=== PATIENT | male | born 1990 | race Caucasian/White ===

== ENCOUNTER 2016-08-02 18:53 | Inpatient (IN) | payer OTHER ==
[~2016-08-02] VITALS: Ht 190.5 cm; Wt 77.1 kg
[2016-08-02 20:45] VITALS: BP 128/60
--- NOTE | 2016-08-02 20:45 | NUR ---
INTAKE ASSESSMENT BP: 128/60, HR:100, RR:18, SpO2: 99%, T:98.0, Pain: 6/10 Ht: 6'3" Wt: 170 lbs Pt is in stable condition and able to be admitted on unit. Unit protocols regarding medications and vital signs Q4H explained to pt. Pt verbalized understanding.
[2016-08-02] MEDS ORDERED: ONDANSETRON 4 MG/2 ML VIAL IM PRN (21:15)
[2016-08-02] MEDS ORDERED: LOPERAMIDE HCL 2 MG CAPSULE PO PRN ×2 (21:15)
[2016-08-02] MEDS ORDERED: BUPRENORPHINE HCL 2 MG TAB.SUBL SL PRN (21:15)
[2016-08-02] MEDS ORDERED: LORAZEPAM 1 MG TABLET PO PRN ×2 (21:15)
[2016-08-02] MEDS ORDERED: LORAZEPAM 2 MG/1 ML VIAL IM PRN (21:15)
[2016-08-02] MEDS ORDERED: METHOCARBAMOL 750 MG TABLET PO PRN (21:15)
[2016-08-02] MEDS ORDERED: diphenhydrAMINE 50 MG CAPSULE PO PRN (21:15)
[2016-08-02] MEDS ORDERED: MAG HYDROX/AL HYDROX/SIMETH 30 ML LIQUID UDC PO PRN (21:15)
[2016-08-02] MEDS ORDERED: ACETAMINOPHEN 325 MG TABLET PO PRN (21:15)
[2016-08-02] MEDS ORDERED: ONDANSETRON ODT 4 MG TAB.RAPDIS SL PRN (21:15)
[2016-08-02] MEDS ORDERED: THIAMINE HCL 200 MG/2 ML VIAL IM ONE (21:15)
[2016-08-02] MEDS ORDERED: MIRALAX 17 GM POWD.PACK PO PRN (21:15)
[2016-08-02] MEDS ORDERED: MAGNESIUM HYDROXIDE 30 ML LIQUID UDC PO PRN (21:15)
[2016-08-02] MEDS ORDERED: DICYCLOMINE HCL 20 MG TABLET PO PRN (21:15)
[2016-08-02] MEDS ORDERED: CLONIDINE HCL 0.1 MG TABLET PO PRN (21:15)
[2016-08-02] MEDS ORDERED: METH750T3 PO (21:30)
[2016-08-02] MEDS ORDERED: ONDA4TAB5 PO (21:30)
[2016-08-02] MEDS ORDERED: BUPR1FIL3 SL (21:30)
--- NOTE | 2016-08-02 21:30 | NUR ---
ADMISSION NOTE Pt arrived ambulatory from [facility] to the third floor accompanied by a APPLE PEELER OPERATOR at 2100. Pt is a 25 year old male admitted on 08/02/16 for Benzo, ETOH, Heroin, Crack, Cocaine and Marijuana dependency. Pt is full code with NKA. He reports a PMHx of seizure 10 months ago related to ETOH withdrawal, and right clavicle surgery 8 years ago. Pt denies having a PCP. He brought in home medications of Suboxone 8mg/2mg, Robaxin 750 mg, and Zofran 4 mg which he received from his previous treatment facility. Medications have been reconciled. Pt reports that he is here for Heroin, ETOH, Crack, Cocaine, Xanax and Marijuana. Pt states he is originally from [place] but has been living in [facility] for a few months. He reports his last sobriety was for 5 months, 1 month ago. He reports that he was at [facility] and arrived there last night (08/01/16) but was sent to [facility] today. He describes his current use as: 1. ETOH 1/5th of whiskey daily x 1 month Last dose: 2 pints on 08/01/16 2. Xanax " few bars" one time Last dose: " few bars" on 08/01/16 3. Heroin 1.5 gram IV daily x 1 month Last dose: 2 grams IV on 08/01/16 4. Crack 2 grams (smoke) daily x 1 month Last dose: 1 gram (smoke) on 07/31/16) 5. Cocaine 2 grams IV daily x 1 month Last dose: 2 grams IV on 07/31/16 6. Marijuana 1/th gram (smoke) daily for "years" Last dose: 1/8th gram on 08/01/16 Pt describes his withdrawal symptoms as "vomiting, muscle aches, restlessness, hot and cold sweats, diarrhea" Upon assessment pt is alert and oriented x4, anxious and cooperative. Speech is clear and audible. Heart rate is regular. Pt denies chest pain or SOB. PERRLA, breathing is even and unlabored. Lung sounds clear in all lobes, abdomen is soft and non distended. Bowel sounds present in all quadrants. Last BM (08/02/16). Pt reports that BM is regular. Pt's skin is warm, dry and intact. made aware of admission. Pt oriented to room and unit. Pt safe with bed locked in lowest position, side rails up x2 and call light within reach. Will continue to monitor.
[2016-08-02 21:52] LABS: *AMPHETAMINE, URINE NEGATIVE (NEGATIVE); *BARBITURATE, URINE NEGATIVE (NEGATIVE); *CANNABINOID, URINE POSITIVE (NEGATIVE); *COCCAINE, URINE POSITIVE (NEGATIVE); *OPIATE, URINE NEGATIVE (NEGATIVE); *PHENCYCLIDINE SCREEN,URINE NEGATIVE (NEGATIVE)
[2016-08-02] MEDS ORDERED: BUPRENORPHINE HCL 2 MG TAB.SUBL SL ONE (22:08)
[2016-08-02 22:09] LABS: BASOPHILS % (AUTO) 0.6 % (0.0-2.0); EOSINOPHILS # (AUTO) 0.1 K/uL (0.0-0.7); EOSINOPHILS % (AUTO) 1.8 % (0.0-7.0); HEMATOCRIT 40.7 % (40-50); HEMOGLOBIN 13.5 G/DL (14.0-18.0); LYMPHOCYTES # (AUTO) 3.2 K/UL (0.8-4.8); LYMPHOCYTES % (AUTO) 42.7 % (20.5-51.5); MEAN CORPUSCULAR HGB CONC 33 g/dL (32.0-37.0); MEAN CORPUSCULAR VOLUME 90.8 FL (82.0-92.0); MONOCYTES # (AUTO) 0.8 K/UL (0.1-1.30); MONOCYTES % (AUTO) 10.6 % (0.0-11.0); NEUTROPHILS # (AUTO) 3.5 K/UL (1.8-8.9); NEUTROPHILS % (AUTO) 44.3 % (38.5-71.5); PLATELET COUNT (AUTO) 171 K/UL (150-450); RED BLOOD CELL COUNT(AUTO) 4.48 MIL/UL (4.7-6.1); WHITE BLOOD COUNT (AUTO) 7.6 K/UL (4.0-11.2)
[2016-08-02] MEDS ORDERED: LORAZEPAM 1 MG TABLET ONE (22:09)
[2016-08-02 22:24] LABS: ALANINE AMINOTRANSFERASE 67 U/L (16-63); ALKALINE PHOSPHATASE 82 U/L (50-136); AMYLASE 56 U/L (25-115); ASPARTATE AMINOTRANSFERASE 32 U/L (15-37); BILIRUBIN,TOTAL 0.2 mg/dL (0.2-1.0); CARBON DIOXIDE 29 mmol/L (21-32); CHLORIDE 104 mmol/L (98-107); CREATININE 0.9 mg/dL (0.6-1.3); GLUCOSE 93 mg/dL (74-106); MAGNESIUM 1.5 mg/dL (1.8-2.4); TOTAL PROTEIN, SERUM 6.5 g/dL (6.4-8.2); UREA NITROGEN, BLOOD 13 mg/dL (7-18)
[2016-08-02 22:29] LABS: ETHANOL < 3 MG/DL (0-0)
--- NOTE | 2016-08-02 22:33 | NUR ---
PRN SUBUTEX/ATIVAN Pt complains of body aches 6/10, hot/cold sweats, restlessness, anxiety, and agitation. PRN Subutex 4mg and PRN Ativan 1mg administered as ordered. COWS:12, CIWA: 8. Breathing even and unlabored, safety measures in place. Will monitor effectiveness.
--- NOTE | 2016-08-02 23:33 | NUR ---
PRN SUBUTEX/ATIVAN REASSESSMENT PRN medications effective as evidenced by decrease in COWS & CIWA. Pt reports decrease in withdrawal symptoms. COWS: 5, CIWA:5. Breathing is even and unlabored, safety measures in place. Will continue to monitor.
[2016-08-03] VITALS: BP 119/66
[2016-08-03 04:00] VITALS: BP 125/70
--- NOTE | 2016-08-03 06:58 | NUR ---
END OF SHIFT Pt is is 25 year old male admitted on 08/02/16 for Xanax, ETOH, Heroin, Crack, Cocaine, and Marijuana dependency. Pt is full code with NKA. He reports a history of seizure 10 months ago related to ETOH w/d and right clavicle surgery 8 years ago. At 2233 he complained of restlessness, body aches, anxiety, and agitation and received PRN Subutex and PRN Ativan. PRN medications were effective as evidenced by decrease in COWS & CIWA scores. He slept a total of 5 hrs, Intake: 355 mL, Void: x1, BM: 0. COWS:1, CIWA:2. Pt remains alert and oriented x4, breathing is even and unlabored, safety measures in place. Endorsed to oncoming shift.
--- NOTE | 2016-08-03 07:26 | NUR ---
Start of shift note; Received report from night nurse. Patient is a 25 year old male admitted on 08/02/16 for Benzo/ ETOH/ Opiate dependence. Patient to be evaluated today by MD. Patient reported history of seizure d/t ETOH withdrawal 10 months ago. Patient also had right clavicle surgery 8 years ago. Patient is on a full code status, NKA, regular diet. Patient's last COWS score is 4 and last CIWA of 4 at 0400. Patient slept for 5 hours. Patient is on fall and seizure precaution. Will continue to monitor patient .
[2016-08-03 08:00] VITALS: BP 108/63
[2016-08-03] MEDS: THIAMINE HCL 100 MG TABLET PO SCH (08:52)
[2016-08-03] MEDS: MULTIVITAMINS,THERAPEUTIC TABLET PO SCH (08:52)
[2016-08-03] MEDS: FOLIC ACID 1 MG TABLET PO SCH (08:52)
[2016-08-03] MEDS ORDERED: TUBERCULIN,PURIF.PROT.DERIV. 5 TU/0.1 ML TEST ID ONE (09:00)
[2016-08-03] MEDS ORDERED: MAGNESIUM OXIDE 400 MG TABLET PO ONE (09:00)
--- NOTE | 2016-08-03 09:05 | NUR ---
Magnesium replacement; Patient's magnesium is 1.5, supplemented with Magnesium Oxide 400mg PO once per MD order. Will continue to monitor patient.
[2016-08-03] MEDS: LORAZEPAM 1 MG TABLET PO SCH ×4 (10:00→21:07)
[2016-08-03] MEDS: BUPRENORPHINE HCL 2 MG TAB.SUBL SL SCH ×4 (10:00→21:07)
[2016-08-03 12:00] VITALS: BP 105/67
--- NOTE | 2016-08-03 15:32 | NUR ---
Client was informed about daily group times, and client expressed that he would consider going.
[2016-08-03 16:00] VITALS: BP 113/68
--- NOTE | 2016-08-03 18:50 | NUR ---
End of shift note; Patient is AOX4. Patient is a 25 year old male admitted on 08/02/16 for Benzo/ ETOH/ Opiate dependence. Patient to be evaluated today by MD. Patient reported history of seizure d/t ETOH withdrawal 10 months ago. Patient also had right clavicle surgery 8 years ago. Patient is on a full code status, NKA, regular diet. Patient remained compliant with treatment plan and medication regime. Patient was placed on Subutex/Ativan , no adverse reactions noted. All safety measures secured. Met all needs.
--- NOTE | 2016-08-03 19:50 | NUR ---
START OF SHIFT Received report from day shift nurse. Pt is lying in bed resting. He is a 25 yo male admitted to [facility] on 08/02 for BZD and ETOH dependence. He is A&O and ambulatory. NKA, full code status, and on a regular diet. He has a PMH of seizure r/t ETOH w/d and right clavicle surgery. On admission he admitted to using Xanax "a few bars", ETOH 1/5th, heroin IV 1.5 grams, crack 2 grams, cocaine IV 2 grams, and marijuana 1/8th per day. Pt was started on 5 day Ativan and Subutex tapers today. Pt reports chills, anxiety, nasal stuffiness, body aches, and restlessness. He is observed to have restless legs. Tapers due tonight. Fall and seizure precautions in place. Bed is down with call light in reach.
[2016-08-03 20:00] VITALS: BP 107/69
[2016-08-03] MEDS: IBUPROFEN 600 MG TABLET PO PRN (21:07)
--- NOTE | 2016-08-03 21:10 | NUR ---
PRN Motrin administration Pt reports headache and body aches 08/07. PRN Motrin administered.
--- NOTE | 2016-08-03 22:10 | NUR ---
PRN Motrin reassessment PRN Motrin effective. Pt reports relief of headache. Addendum: 08/04/16 at 0440 by MILADYS DASILVA RN Body aches reduced to 2/10
[2016-08-04] VITALS: BP 119/64
[2016-08-04 04:00] VITALS: BP 119/67
--- NOTE | 2016-08-04 07:21 | NUR ---
END OF SHIFT Report provided to day shift nurse. Pt is lying in bed resting. He is a 25 yo male admitted to [facility] on 08/02 for BZD and ETOH dependence. He is A&O and ambulatory. NKA, full code status, and on a regular diet. He has a PMH of seizure r/t ETOH w/d and right clavicle surgery. On admission he admitted to using Xanax a few bars, ETOH 1/5th, heroin IV 1.5 grmas, crack 2 grams, cocaine IV 2 grams, and marijuana 1/8th per day. Pt started a 5 day Ativan taper on 08/03. PRN Motrin administered. Last COWS 4 and CIWA 3. He drank 1355mL and slept for 7 hours. Fall and seizure precautions in place. Bed is down with call light in reach.
--- NOTE | 2016-08-04 07:44 | NUR ---
Start of shift note; Received report from night nurse. Patient is a 25 year old male admitted on 08/02/16 for Benzo/ ETOH/ Opiate dependence. Patient to be evaluated today by MD. Patient reported history of seizure d/t ETOH withdrawal 10 months ago. Patient also had right clavicle surgery 8 years ago. Patient is on a full code status, NKA, regular diet. Patient's last COWS score is 4 and last CIWA of 3 at 0400. Patient slept for 7 hours. Patient is on fall and seizure precaution. Will continue to monitor patient .
[2016-08-04 08:00] VITALS: BP 120/63
[2016-08-04] MEDS: FOLIC ACID 1 MG TABLET PO SCH (08:48)
[2016-08-04] MEDS: THIAMINE HCL 100 MG TABLET PO SCH (08:48)
[2016-08-04] MEDS: LORAZEPAM 1 MG TABLET PO SCH ×3 (08:48→20:47)
[2016-08-04] MEDS: MULTIVITAMINS,THERAPEUTIC TABLET PO SCH (08:48)
[2016-08-04] MEDS: BUPRENORPHINE HCL 2 MG TAB.SUBL SL SCH ×3 (08:49→20:47)
--- NOTE | 2016-08-04 11:48 | NUR ---
PRN medication; Patient is complaining of muscle aches, PRN Robaxin 750mg PO given. Will continue to monitor patient.
[2016-08-04 12:00] VITALS: BP 112/62
--- NOTE | 2016-08-04 12:48 | NUR ---
Re-assessment; Patient verbalized decrease in muscle aches. PRN Robaxin is effective. Will continue to monitor patient.
[2016-08-04 14:09] LABS: HEPATITIS B SURFACE AG Negative (Negative)
[2016-08-04 16:00] VITALS: BP 106/63
--- NOTE | 2016-08-04 18:24 | NUR ---
End of shift note; Patient is AOX4. Patient is a 25 year old male admitted on 08/02/16 for Benzo/ ETOH/ Opiate dependence. Patient to be evaluated today by MD. Patient reported history of seizure d/t ETOH withdrawal 10 months ago. Patient also had right clavicle surgery 8 years ago. Patient is on a full code status, NKA, regular diet. Patient remained compliant with treatment plan and medication regime. Patient was placed on Subutex/Ativan , no adverse reactions noted. Patient's last COWS is 5 and last CIWA is 4. All safety measures secured. Met all needs.
[2016-08-04 20:00] VITALS: BP 114/70
--- NOTE | 2016-08-04 20:05 | NUR ---
START OF SHIFT Received report from day shift nurse. Pt attended a group meeting and returned to his room after. He is a 25 yo male admitted to [facility] on 08/02 for BZD and ETOH dependence. He is A&O and ambulatory. NKA, full code status, and on a regular diet. He has a PMH of seizure r/t ETOH w/d and right clavicle surgery. Upon admission he reported using Xanax "a few bars", ETOH 1/, heroin IV 1.5 grams, crack 2 grams, cocaine IV 2 grams, and marijuana 1/8th per day. 5 day Ativan and Subutex tapers started 08/03. Pt presents with chills, hot and cold flashes, muscle aches, and goose bumps. Tapers due tonight. Fall and seizure precautions in place. Bed is down with call light in reach.
[2016-08-04] MEDS: GABAPENTIN 300 MG CAPSULE PO SCH (20:47)
[2016-08-04] MEDS: IBUPROFEN 600 MG TABLET PO PRN (20:47)
--- NOTE | 2016-08-04 20:48 | NUR ---
PRN Motrin administration Pt reports generalized body aches and joint pain 09/06. PRN Motrin administered.
--- NOTE | 2016-08-04 21:48 | NUR ---
PRN Motrin reassessment PRN Motrin effective. Pt reports muscle and joint pain are reduced.
[2016-08-05] VITALS: BP 97/43
[2016-08-05 04:00] VITALS: BP 114/73
--- NOTE | 2016-08-05 07:10 | NUR ---
END OF SHIFT Report provided to day shift nurse. Pt is lying in bed resting. He is a 25 yo male admitted to [facility] on 08/02 for BZD and ETOH dependence. He is A&O and ambulatory. NKA, full code status, and on a regular diet. He has a PMH of seizure r/t ETOH w/d and right clavicle surgery. On admission he admitted to using Xanax "a few bars", ETOH 1/5th, heroin IV 1.5 grams, crack 2 grams, cocaine IV 2 grams, and marijuana 1/8th per day. 5 day Ativan and Subutex tapers started 08/03. PRN Motrin administered. Last COWS 2 and CIWA 1. He drank 1430mL and slept for 6 hours. Fall and seizure precautions in place. Bed is down with call light in reach.
[2016-08-05 07:56] LABS: MAGNESIUM 1.8 mg/dL (1.8-2.4); POTASSIUM 4.1 mmol/L (3.5-5.1)
[2016-08-05 08:00] VITALS: BP 111/53
[2016-08-05] MEDS ORDERED: BUPRENORPHINE HCL 2 MG TAB.SUBL SL SCH (09:00)
[2016-08-05] MEDS: GABAPENTIN 300 MG CAPSULE PO SCH ×3 (09:12→17:04)
[2016-08-05] MEDS: LORAZEPAM 1 MG TABLET PO SCH ×4 (09:12→21:21)
[2016-08-05] MEDS: FOLIC ACID 1 MG TABLET PO SCH (09:12)
[2016-08-05] MEDS: MULTIVITAMINS,THERAPEUTIC TABLET PO SCH (09:12)
[2016-08-05] MEDS: THIAMINE HCL 100 MG TABLET PO SCH (09:12)
--- NOTE | 2016-08-05 10:00 | NUR ---
START OF SHIFT Received report from unit control clerk nurse. Patient is 26 year old male admitted for medically supervised withdrawal from alcohol and heroin. Patient is full code with NKA. On 5-day Subutex and 5-Day taper. On assessment this AM: CIWA: 6 and COWS: 8. Denies SOB, chest pain. Recent VS: 111/53, HR 59, R16, T98, 0/10 pain and 98% 02 sat room air. Complained of diarrhea X1 this AM but declined imodium when offered, instructed to notify health technical writer if he has another episode and would like to take it. Complained of body aches, mild headache (declined prn pain med at this time), stuffy nose, tremors, anxiety and tactile sensation. Med compliant with AM meds. Patient reports poor appetite and ate breakfast 25% only, encouraged to hydrate with fluids. Patient was encouraged to attend group meetings today. Will continue to monitor patient.
[2016-08-05] MEDS ORDERED: BUPRENORPHINE HCL 2 MG TAB.SUBL SL ONE (11:15)
--- NOTE | 2016-08-05 11:48 | NUR ---
ONE TIME SUBUTEX Patient received one time dose of subutex 4mg po as ordered. COWS = 10
[2016-08-05 12:00] VITALS: BP 110/73
--- NOTE | 2016-08-05 12:18 | NUR ---
REASSESSMENT ONE TIME SUBUTEX Patient's most recent COWS = 7, patient reports feeling much better with decreased anxiety.
[2016-08-05] MEDS: BACLOFEN 10 MG TABLET PO SCH ×2 (14:05→21:21)
[2016-08-05] MEDS: DICYCLOMINE HCL 20 MG TABLET PO SCH ×2 (14:05→21:21)
[2016-08-05] MEDS: IBUPROFEN 600 MG TABLET PO PRN (14:05)
--- NOTE | 2016-08-05 14:05 | NUR ---
PRN IBUPROFEN Patient complains of body ache, 5/10. PRN ibuprofen given, will monitor effectiveness.
[2016-08-05] MEDS: BUPRENORPHINE HCL 2 MG TAB.SUBL SL SCH ×2 (14:06→21:22)
--- NOTE | 2016-08-05 14:33 | NUR ---
Therapist continued to encourage client to attend daily group psychotherapy. Client related that he has not been feeling well, but would attend later today if he was feeling better.
--- NOTE | 2016-08-05 15:05 | NUR ---
REASSESSMENT PRN IBUPROFEN Patient reports decreased pain. Pain level was 5/10 and is now 2/10.
[2016-08-05 16:00] VITALS: BP 122/63
--- NOTE | 2016-08-05 19:21 | NUR ---
END OF SHIFT Patient is 26 year old male admitted for medically supervised withdrawal from alcohol and heroin. Patient is full code with NKA. On 5-day Subutex and 5-Day taper. Most recent CIWA: 7 and COWS: 8. Patient reports mild sweating, body aches, stuffy nose, nausea (pt. declined prn for nausea when offered), tremors and anxiety. Patient is med compliant this shift. Cooperative with lab draw. night warehouse selectornight clerk auditor will continue to monitor patient.
[2016-08-05 20:00] VITALS: BP 121/62
--- NOTE | 2016-08-05 20:00 | NUR ---
START OF SHIFT NOTE Pt is a 26 y/o male admitted for Xanax, ETOH, Heroin, Crack, Cocaine, and Marijuana dependence and use. Pt has NKA but reported a PMH of seizure r/t ETOH w/d (10 months ago) and a right clavicle surgery 8 years ago. Per day shift nurse pt was placed on a 5 day Subutex and Ativan taper (day 3) and is tolerating medication well with no s/e or a/r reported. Pt received a x 1 dose of Subutex 4 mg PO during the day shift. Last COW: 8 and CIWA: 7 (1600). At this time pt is asleep in bed with no signs of discomfort/distress noted. Pt is easily aroused by light touch. Pt stated " I'm okay. I'm just sleepy." Pt denies pain/discomfort. Pt was encouraged to notify staff of any changes in condition or of any concerns. Pt verbalized an understanding. All safety measures in place; side rails up x 2, bed locked and in low position, and call light within reach. Will continue to monitor.
[2016-08-06] VITALS: BP 117/77
[2016-08-06 04:00] VITALS: BP_SYST 115; BP_SYST 131; BP_DIAS 73; BP_DIAS 82
--- NOTE | 2016-08-06 07:13 | NUR ---
END OF SHIFT NOTE Pt is a 26 y/o male admitted for Xanax, ETOH, Heroin, Crack, Cocaine, and Marijuana dependence and use. Pt has NKA but reported a PMH of seizure r/t ETOH w/d (10 months ago) and a right clavicle surgery 8 years ago. Pt was placed on a 5 day Subutex and Ativan taper (day 4) and is tolerating medication well with no s/e or a/r reported. Pt didn't receive any PRNS during the shift. Last COW: 0 and CIWA: 0(0400). Pt slept for a total of 9 hours. All safety measures in place; side rails up x 2, bed locked and in low position, and call light within reach. Will endorse to the oncoming nurse.
[2016-08-06 08:00] VITALS: BP 118/62
[2016-08-06] MEDS: LORAZEPAM 1 MG TABLET PO SCH ×3 (09:47→21:30)
[2016-08-06] MEDS: GABAPENTIN 300 MG CAPSULE PO SCH ×3 (09:47→17:13)
[2016-08-06] MEDS: FOLIC ACID 1 MG TABLET PO SCH (09:48)
[2016-08-06] MEDS: BACLOFEN 10 MG TABLET PO SCH ×2 (09:48→14:42)
[2016-08-06] MEDS: BUPRENORPHINE HCL 2 MG TAB.SUBL SL SCH ×3 (09:48→21:31)
[2016-08-06] MEDS: MULTIVITAMINS,THERAPEUTIC TABLET PO SCH (09:48)
[2016-08-06] MEDS: DICYCLOMINE HCL 20 MG TABLET PO SCH ×3 (09:48→21:00)
[2016-08-06] MEDS: THIAMINE HCL 100 MG TABLET PO SCH (09:48)
--- NOTE | 2016-08-06 10:00 | NUR ---
START OF SHIFT Received report from overnight stocker nurse. Patient is 26 year old male admitted for medically supervised withdrawal from alcohol and heroin. Patient is full code with NKA. On 5-day Subutex and 5-Day taper. On assessment this AM: CIWA: 7 and COWS: 6. Denies SOB, chest pain. vitals signs WNL. Reports mild diarrhea X1 this AM but declined imodium when offered. Complained of body aches (pain 7/10), stuffy nose, tremors and anxiety and mild tactile sensation. Med compliant with AM meds. Patient consumed 50% of his breakfast. Patient was encouraged to attend group meetings today. Will continue to monitor patient.
[2016-08-06 12:00] VITALS: BP 119/54
[2016-08-06 16:00] VITALS: BP 134/67
--- NOTE | 2016-08-06 18:26 | NUR ---
END OF SHIFT Patient is 26 year old male admitted for medically supervised withdrawal from alcohol and heroin. Patient is full code with NKA. On 5-day Subutex and 5-Day taper. Most recent CIWA: 5 and COWS: 6. Patient reports body aches, stuffy nose, tremors and anxiety. Patient is med compliant this shift. Pratinet reports his routine medications help with body aches and anxiety. automobile body repair chieffire and safety helper will continue to monitor patient.
--- NOTE | 2016-08-06 19:45 | NUR ---
START OF SHIFT NOTE Pt is a 26 y/o male admitted for Xanax, ETOH, Heroin, Crack, Cocaine, and Marijuana dependence and use. Pt has NKA but reported a PMH of seizure r/t ETOH w/d (10 months ago) and a right clavicle surgery 8 years ago. Per day shift nurse pt continues on a 5 day Subutex and Ativan taper (day 4) and is tolerating medication well with no s/e or a/r reported. Pt didn't receive any PRNS during the day shift. Last COW: 4 and CIWA: 5 (1600). At this time pt is asleep in bed with no signs of discomfort/distress noted. Pt is easily aroused. Pt denies pain/discomfort. Pt was encouraged to notify staff of any changes in condition or of any concerns. Pt verbalized an understanding. All safety measures in place; side rails up x 2, bed locked and in low position, and call light within reach. Will continue to monitor.
[2016-08-06 20:00] VITALS: BP 95/67
[2016-08-06] MEDS ORDERED: BACLOFEN 10 MG TABLET PO SCH (21:00)
[2016-08-06] MEDS: BACLOFEN 20 MG TABLET PO SCH (21:00)
[2016-08-06] MEDS ORDERED: GABAPENTIN 300 MG CAPSULE PO SCH (21:00)
[2016-08-07] VITALS: BP 116/62
--- NOTE | 2016-08-07 04:00 | NUR ---
COW, CIWA, AND VITALS REFUSED Pt refused to be assessed and have vitals taken at this time. Pt was encouraged x 3 with risks and benefits explained, but the pt still refused. All safety measures in place. Will continue to monitor. Addendum: 08/07/16 at 0559 by BALBIR TRUJILLO LVN Amended: Links added.
--- NOTE | 2016-08-07 07:30 | NUR ---
Start of Shift Report from the night nurse: pt is a 25 y/o male here for Benzo r/t Xanax a few bars used once, Etoh r/t whiskey 750mL /d for a month, Opiates r/t heroin 1.5g/d, Cocaine 2g smoked/da d Marijuana 1/8/d; 5 day Ativan and 5 day Subutex tapers ordered started 08/03/16. Pt is a f/c, regular diet, NKA, fall and seizure precautions ordered. HHx: Seizure 10 months ago r/t Etoh w/d and right Clavicle surgery 8 years ago. No PRN's given last night. Last night pt refused Bentyl 20mg. No abnormal labs or new orders endorsed for me to f/u. Last COWS 0 CIWA 0. Pt is asleep in room. Will cont. to monitor the pt.
--- NOTE | 2016-08-07 07:42 | NUR ---
END OF SHIFT NOTE Pt is a 26 y/o male admitted for Xanax, ETOH, Heroin, Crack, Cocaine, and Marijuana dependence and use. Pt has NKA but reported a PMH of seizure r/t ETOH w/d (10 months ago) and a right clavicle surgery 8 years ago. Pt continues on a 5 day Subutex and Ativan taper (day 5) and is tolerating medication well with no s/e or a/r reported. Pt didn't receive any PRNS during the shift. Last COW: 0 and CIWA: 0(0400). Pt slept for a total of 9 hours. All safety measures in place; side rails up x 2, bed locked and in low position, and call light within reach. Will endorse to the oncoming nurse.
[2016-08-07 08:00] VITALS: BP 120/67
[2016-08-07] MEDS: DICYCLOMINE HCL 20 MG TABLET PO SCH ×3 (08:53→21:21)
[2016-08-07] MEDS: MULTIVITAMINS,THERAPEUTIC TABLET PO SCH (08:53)
[2016-08-07] MEDS: IBUPROFEN 600 MG TABLET PO PRN (08:53)
[2016-08-07] MEDS: BACLOFEN 20 MG TABLET PO SCH ×3 (08:53→21:20)
[2016-08-07] MEDS: LORAZEPAM 1 MG TABLET PO SCH ×2 (08:54→21:22)
[2016-08-07] MEDS: FOLIC ACID 1 MG TABLET PO SCH (08:54)
[2016-08-07] MEDS: THIAMINE HCL 100 MG TABLET PO SCH (08:54)
[2016-08-07] MEDS: BUPRENORPHINE HCL 2 MG TAB.SUBL SL SCH ×2 (08:57→21:23)
[2016-08-07] MEDS ORDERED: GABAPENTIN 300 MG CAPSULE PO SCH (09:00)
--- NOTE | 2016-08-07 09:55 | NUR ---
PRN Medication Administration Pt c/o KEYES and nausea; PRN Zofran 4mg SL and Motrin 400mg given as ordered. Will reassess in 1H.
--- NOTE | 2016-08-07 11:00 | NUR ---
Reassessment Pt is in room resting in bed and denies KEYES and no nausea; Motrin and Zofran are effective. Will cont. to monitor the pt.
[2016-08-07 12:00] VITALS: BP 126/68
[2016-08-07] MEDS ORDERED: KETOROLAC TROMETHAMINE 30 MG INJ IM PRN (12:00)
[2016-08-07] MEDS ORDERED: BUPRENORPHINE HCL 2 MG TAB.SUBL SL ONE ×2 (12:00→15:45)
--- NOTE | 2016-08-07 12:31 | NUR ---
New Order Subutex ONCE Pt is in room lying in bed anxious and restless with frequent shifting and position changes, c/o recurrent mild nausea, mild KEYES, first bout of diarrhea, V/S stable, COWS 8; New order s/p Dr. Barajas's evaluation for Subutex 4mg ONCE given with first dose of Imodium 4mg given as ordered. Will reassess in 1H.
--- NOTE | 2016-08-07 13:36 | NUR ---
Reassessment Pt is in room taking a nap, no non-verbal s/sx of nausea, restlessness or pain present; Subutex and Zofran are effective. Will cont. to monitor the pt.
[2016-08-07] MEDS: CLONIDINE HCL 0.1 MG TABLET PO SCH ×2 (15:00→21:00)
[2016-08-07] MEDS ORDERED: LORAZEPAM 1 MG TABLET PO ONE (15:45)
[2016-08-07] MEDS ORDERED: HYDROXYZINE PAMOATE 25 MG CAPSULE PO PRN (15:45)
[2016-08-07 16:00] VITALS: BP 115/76
--- NOTE | 2016-08-07 17:20 | NUR ---
New Orders-Subutex and Ativan, Late & Non-Medication Administration, Pt is in room anxious, irritable, restless with pacing, nasal congestion, flushed, numbness, tingling, mild tremors felt, mild nausea, stomach cramps, generalized pain 08/07, V/S stable, COWS 7 CIWA 11; New Orders for Subutex 2mg ONCE, Ativan 1mg ONCE, pt refused Clonidine 0.1mg. Late medication administration since pt was in group therapy and out smoking after. Will reassess in 1H.
[2016-08-07] MEDS: GABAPENTIN 300 MG CAPSULE PO SCH ×2 (17:25→21:20)
--- NOTE | 2016-08-07 18:47 | NUR ---
End of Shift Report to night nurse: pt is a 25 y/o male here for Benzo r/t Xanax a few bars used once, Etoh r/t whiskey 750mL /d for a month, Opiates r/t heroin 1.5g/d, Cocaine 2g smoked/d Marijuana 1/8/d; 5 day Ativan and 5 day Subutex tapers ordered started 08/03/16. Pt is a f/c, regular diet, NKA, fall and seizure precautions ordered. HHx: Seizure 10 months ago r/t Etoh w/d and right Clavicle surgery 8 years ago. PRN's: Ibuprofen 600mg and Zofran given this morning at 0955am and Imodium 4mg given at 1225pm for first bout of diarrhea. New Order for Subutex 4 mg ONCE at at 1228p with COWS 8, Subutex 4mg SL ONCE at 1725 with COWS 11 and Ativan 1mg ONCE with CIWA 7. No new labs during my shift. Pt denies chest pain and no SOB noted during my shift. No hallucinations, delusions, or suicidal ideations noted. Pt attended 1 group activity during my shift with encouragement to attend group therapy. Last COWS 7 CIWA 11.
--- NOTE | 2016-08-07 19:45 | NUR ---
START OF SHIFT NOTE Pt is a 26 y/o male admitted for Xanax, ETOH, Heroin, Crack, Cocaine, and Marijuana dependence and use. Pt has NKA but reported a PMH of seizure r/t ETOH w/d (10 months ago) and a right clavicle surgery 8 years ago. Per day shift nurse pt continues on a 5 day Subutex and Ativan taper and is tolerating medication well with no s/e or a/r reported. Pt received Motrin 600 mg PO PRN, Ativan 1 mg PO x 1, Subutex 4 mg PO x 1 , and Imodium during the day shift. Last COW: 7 and CIWA: 11 (1600). Pt denies pain/discomfort. Pt was encouraged to notify staff of any changes in condition or of any concerns. Pt verbalized an understanding. All safety measures in place; side rails up x 2, bed locked and in low position, and call light within reach. Will continue to monitor.
[2016-08-07 20:00] VITALS: BP 130/64
[2016-08-08] VITALS: BP 119/71
--- NOTE | 2016-08-08 04:00 | NUR ---
COW, CIWA, AND VITALS REFUSED Pt refused to be assessed and have vitals taken at this time. Pt was encouraged x 3 with risks and benefits explained, but the pt still refused. All safety measures in place. Will continue to monitor. Addendum: 08/08/16 at 0614 by BALBIR TRUJILLO LVN Amended: Links added.
--- NOTE | 2016-08-08 07:18 | NUR ---
END OF SHIFT NOTE Pt is a 26 y/o male admitted for Xanax, ETOH, Heroin, Crack, Cocaine, and Marijuana dependence and use. Pt has NKA but reported a PMH of seizure r/t ETOH w/d (10 months ago) and a right clavicle surgery 8 years ago. Pt continues on a 5 day Subutex and Ativan taper and is tolerating medication well with no s/e or a/r reported. Pt didn't receive any PRNS during the shift. Last COW: 0 and CIWA: 0(0000). Pt slept for a total of 9 hours. All safety measures in place; side rails up x 2, bed locked and in low position, and call light within reach. Will endorse to the oncoming nurse.
--- NOTE | 2016-08-08 07:21 | NUR ---
START OF SHIFT NOTE Pt is a 26 y/o male admitted for Xanax, ETOH, Heroin, Crack, Cocaine, and Marijuana dependence and use. Pt has NKA but reported a PMH of seizure r/t ETOH w/d (10 months ago) and a right clavicle surgery 8 years ago. Per day shift nurse pt continues on a 5 day Subutex and Ativan taper and is tolerating medication well with no s/e or a/r reported. Pt received Motrin 600 mg PO PRN, Ativan 1 mg PO x 1, Subutex 4 mg PO x 1 , and Imodium during the day shift. Last COW: 7 and CIWA: 11 (1600). Pt denies pain/discomfort. Pt was encouraged to notify staff of any changes in condition or of any concerns. Pt verbalized an understanding. All safety measures in place; side rails up x 2, bed locked and in low position, and call light within reach. Will continue to monitor. Addendum: 08/08/16 at 0724 by BALBIR TRUJILLO LVN erroneous entry
--- NOTE | 2016-08-08 07:24 | NUR ---
START OF SHIFT NOTE: Received report from senior technical architect nurse. Pt is a 26 y/o male admitted 6 for Xanax, ETOH, Heroin, Crack, Cocaine, and Marijuana dependence. Pt is on a 5 day Subutex and Ativan tapers. Tolerating well. Pt is alert and oriented X4. Color good, skin warm and dry. Respirations even and unlabored. Pt resting in bed. Safety precautions observed. Call light within reach. Will continue to monitor.
[2016-08-08 08:03] VITALS: BP 114/58
[2016-08-08] MEDS: CLONIDINE HCL 0.1 MG TABLET PO SCH ×3 (09:00→21:00)
[2016-08-08] MEDS ORDERED: BUPRENORPHINE HCL 2 MG TAB.SUBL SL SCH (09:00)
[2016-08-08] MEDS ORDERED: LORAZEPAM 1 MG TABLET PO SCH (09:00)
[2016-08-08] MEDS: BACLOFEN 20 MG TABLET PO SCH ×3 (09:14→21:06)
[2016-08-08] MEDS: MULTIVITAMINS,THERAPEUTIC TABLET PO SCH (09:14)
[2016-08-08] MEDS: DICYCLOMINE HCL 20 MG TABLET PO SCH ×3 (09:15→21:05)
[2016-08-08] MEDS: THIAMINE HCL 100 MG TABLET PO SCH (09:15)
[2016-08-08] MEDS: FOLIC ACID 1 MG TABLET PO SCH (09:15)
[2016-08-08] MEDS: GABAPENTIN 300 MG CAPSULE PO SCH (09:15)
--- NOTE | 2016-08-08 09:18 | NUR ---
VSS COWS 10 CIWA 11 Pt c/o severe muscle aches, restless legs, anxiety and sweating. Also with gross upper extremity tremors.
[2016-08-08 11:06] LABS: *HCV QUANT 315020 IU/mL (.)
--- NOTE | 2016-08-08 11:25 | NUR ---
Pt c/o severe left sided pain. Dr. Barajas notified.
[2016-08-08] MEDS ORDERED: BUPRENORPHINE HCL 2 MG TAB.SUBL SL ONE (11:30)
[2016-08-08] MEDS ORDERED: KETOROLAC TROMETHAMINE 30 MG INJ IM ONE (11:30)
[2016-08-08] MEDS ORDERED: LORAZEPAM 1 MG TABLET PO ONE (11:30)
--- NOTE | 2016-08-08 11:49 | NUR ---
Toradol 30mg IM, Ativan 2mg po and Subutex 4mg sl X1 given for pain 10/10 back
[2016-08-08 12:48] VITALS: BP 95/56
--- NOTE | 2016-08-08 12:50 | NUR ---
Pt feels improved after Toradol, Ativan and Subutex prn. States pain 6/10
[2016-08-08] MEDS: BUPRENORPHINE HCL 2 MG TAB.SUBL SL SCH ×2 (15:00→21:08)
[2016-08-08] MEDS: GABAPENTIN 400 MG CAPSULE PO SCH ×2 (15:00→21:05)
[2016-08-08] MEDS: LORAZEPAM 1 MG TABLET PO SCH ×2 (15:00→21:05)
--- NOTE | 2016-08-08 16:00 | NUR ---
1500 meds non-administered due to patient in a sound sleep. Arousable but will not wake up to take meds. Meds returned
[2016-08-08 17:24] VITALS: BP 93/60
--- NOTE | 2016-08-08 18:37 | NUR ---
END OF SHIFT NOTE: Report given to shift commander nurse. Pt is a 26 y/o male admitted 6 for Xanax, ETOH, Heroin, Crack, Cocaine, and Marijuana dependence. Pt is on a 5 day Subutex and Ativan tapers. Tolerating well. Pt is alert and oriented X4. Color good, skin warm and dry. Respirations even and unlabored. Vital signs have remained stable throughout shift. Last COWS CIWA @ 1500. Pt received Toradol 30mg IM, Ativan 2mg po and Subutex 4mg sl X1 given for pain 12/07 back @ 1150. 1500 meds non-administered due to patient in a sound sleep. Pt resting in bed. Safety precautions observed. Call light within reach.
[2016-08-08 20:00] VITALS: BP 123/72
--- NOTE | 2016-08-08 20:00 | NUR ---
Start of Shift Pt is a 26 year old male admitted for Benzo/ETOH/Opiate dependence, placed on 5 day Ativan and 5 day Subutex taper. Pt reported using Xanax "few bars" x1, whiskey 1/5th/daily, Heroin IV 1.5g/daily, Crack 2 grams/daily x 1 month, Cocaine 2 grams IV daily x 1 month and Marijuana 1/8th gram (smoke) daily. PMH: seizure r/t ETOH withdrawal 10 months ago and right clavicle surgery 8 years ago. NKA, regular diet, fall/seizure precautions and full code. Upon assessment, Pt presents with hot/cold chills, muscle aches throughout body, inability to sit still, n/v, skin flushed/clammy, nose running/teary eyes, denies chest pain, respirations unlabored, scheduled taper medications to be administered. Safety measures in place, call light within reach, side rails up x2, bed locked and in low position. Will continue to monitor.
[2016-08-09] VITALS: BP 115/61
[2016-08-09 04:00] VITALS: BP 108/66
--- NOTE | 2016-08-09 04:00 | NUR ---
Vital Signs BP 108/66, pulse 59, respiration 12, SpO2 99%, temp 97.6, no pain 0/10 COWS/CIWA deferred d/t pt sleeping - to assess while pt is awake as ordered. Safety measures in place. Will continue to monitor.
--- NOTE | 2016-08-09 07:00 | NUR ---
End of Shift Pt is a 26 year old male admitted for Benzo/ETOH/Opiate dependence, placed on 5 day Ativan and 5 day Subutex taper. Pt reported using Xanax "few bars" x1, whiskey 1/5th/daily, Heroin IV 1.5g/daily, Crack 2 grams/daily x 1 month, Cocaine 2 grams IV daily x 1 month and Marijuana 1/8th gram (smoke) daily. PMH: seizure r/t ETOH withdrawal 10 months ago and right clavicle surgery 8 years ago. NKA, regular diet, fall/seizure precautions and full code. During shift, Pt presented with hot/cold chills, muscle aches throughout body, inability to sit still, n/v, skin flushed/clammy, nose running/teary eyes - scheduled taper medications administered, effective in management of s/s of withdrawal, COWS 11 and CIWA 10 decreased to COWS 9 and CIWA 8. Pt refused scheduled Clonidine 0.1mg - education provided on risks/benefits. No PRNs administered during shift. VS stable, pt slept for 6 hours, intake of 1200 mL PO and voids x2. Safety measures in place, call light within reach, side rails up x2, bed locked and in low position. Endorsed to day shift nurse.
--- NOTE | 2016-08-09 07:36 | NUR ---
START OF SHIFT NOTE: Received report from hand spring former nurse. Pt is a 26 y/o male admitted 08-05-16 for Xanax, ETOH, Heroin, Crack, Cocaine, and Marijuana dependence. Pt is on a 5 day Subutex and Ativan tapers ending today. Tolerating well. Pt is alert and oriented X4. Color good, skin warm and dry. Respirations even and unlabored. Pt resting in bed. Safety precautions observed. Call light within reach. Will continue to monitor.
[2016-08-09 08:00] VITALS: BP 101/58
[2016-08-09] MEDS ORDERED: LORAZEPAM 1 MG TABLET PO SCH (09:00)
[2016-08-09] MEDS: CLONIDINE HCL 0.1 MG TABLET PO SCH ×3 (09:00→21:00)
[2016-08-09] MEDS ORDERED: BUPRENORPHINE HCL 2 MG TAB.SUBL SL SCH (09:00)
[2016-08-09] MEDS: DICYCLOMINE HCL 20 MG TABLET PO SCH ×4 (09:18→21:38)
[2016-08-09] MEDS: GABAPENTIN 400 MG CAPSULE PO SCH ×4 (09:18→21:38)
[2016-08-09] MEDS: MULTIVITAMINS,THERAPEUTIC TABLET PO SCH (09:19)
[2016-08-09] MEDS: THIAMINE HCL 100 MG TABLET PO SCH (09:19)
[2016-08-09] MEDS: FOLIC ACID 1 MG TABLET PO SCH (09:19)
[2016-08-09] MEDS: BACLOFEN 20 MG TABLET PO SCH ×4 (09:19→21:39)
--- NOTE | 2016-08-09 09:21 | NUR ---
VSS COWS 8 CIWA 7 c/o sweating, tremors, muscle aches and anxiety.
--- NOTE | 2016-08-09 09:30 | NUR ---
Pt c/o back pain 8 Toradol 30mg IM prn given.
--- NOTE | 2016-08-09 10:24 | NUR ---
Pt c/o constipation. Miralax 1 packet prn given
[2016-08-09] MEDS ORDERED: BUPRENORPHINE HCL 2 MG TAB.SUBL SL ONE ×2 (11:30→15:00)
--- NOTE | 2016-08-09 12:31 | NUR ---
Subutex 4mg sl prn administered. COWS 11. c/o severe muscle aches.
[2016-08-09 12:56] VITALS: BP 117/56
--- NOTE | 2016-08-09 13:30 | NUR ---
Pt feels improved after one time Subutex 4mg sl. COWS 8
--- NOTE | 2016-08-09 14:26 | NUR ---
VSS COWS 8 CIWA 6 one time Subutex 4mg sl given for body aches.
[2016-08-09] MEDS ORDERED: LORAZEPAM 1 MG TABLET PO ONE (15:00)
--- NOTE | 2016-08-09 15:30 | NUR ---
Pt feels improved after Subutex 4mg X1. Body aches improved. COWS 6
[2016-08-09 17:55] VITALS: BP 113/70
--- NOTE | 2016-08-09 18:43 | NUR ---
END OF SHIFT NOTE: Report given to security shift supervisor nurse. Pt is a 26 y/o male admitted 08-05-16 for Xanax, ETOH, Heroin, Crack, Cocaine, and Marijuana dependence. Pt completed a 5 day Subutex and 5 day Ativan tapers. Pt is alert and oriented X4. Color good, skin warm and dry. Respirations even and unlabored. Vital signs have remained stable throughout shift. Last COWS 8 CIWA 6 @ 1500. Pt received Toradol 30mg IM @ 0930, Subutex 4mg sl X1 given @ 1230 and 1430. Also received Miralax prn @ 1030. 1700 meds non-administered due to patient in a sound sleep. Pt resting in bed. Safety precautions observed. Call light within reach.
[2016-08-09 20:00] VITALS: BP 106/69
--- NOTE | 2016-08-09 20:11 | NUR ---
START OF SHIFT NOTE Pt is a 26 y/o male admitted for Xanax, ETOH, Heroin, Crack, Cocaine, and Marijuana dependence and use. Pt has NKA but reported a PMH of seizure r/t ETOH w/d (10 months ago) and a right clavicle surgery 8 years ago. Per day shift nurse pt continues on a 5 day Subutex and Ativan taper and is tolerating medication well with no s/e or a/r reported. Pt received Toradol IM PRN, Subutex 2 mg PO x 1, and Miralax PRN during the day shift. Last COW: 8 and CIWA: 3 (1600). At this time pt is in his room asleep. Pt is easily aroused. Pt denies pain/discomfort. Pt was encouraged to notify staff of any changes in condition or of any concerns. Pt verbalized an understanding. All safety measures in place; side rails up x 2, bed locked and in low position, and call light within reach. Will continue to monitor.
[2016-08-09] MEDS: LORAZEPAM 1 MG TABLET PO SCH (21:39)
[2016-08-09] MEDS: BUPRENORPHINE HCL 2 MG TAB.SUBL SL SCH (21:40)
--- NOTE | 2016-08-10 | NUR ---
COW, CIWA, AND VITALS REFUSED Pt refused to be assessed and have vitals taken at this time. Pt was encouraged x 3 with risks and benefits explained, but the pt still refused. All safety measures in place. Will continue to monitor. Addendum: 08/10/16 at 0137 by BALBIR TRUJILLO LVN Amended: Links added.
--- NOTE | 2016-08-10 04:02 | NUR ---
COW, CIWA, AND VITALS REFUSED Pt refused to be assessed and have vitals taken at this time. Pt was encouraged x 3 with risks and benefits explained, but the pt still refused. All safety measures in place. Will continue to monitor. Addendum: 08/10/16 at 0403 by BALBIR TRUJILLO LVN Amended: Links added.
--- NOTE | 2016-08-10 07:18 | NUR ---
END OF SHIFT NOTE Pt is a 26 y/o male admitted for Xanax, ETOH, Heroin, Crack, Cocaine, and Marijuana dependence and use. Pt has NKA but reported a PMH of seizure r/t ETOH w/d (10 months ago) and a right clavicle surgery 8 years ago. Pt continues on a 5 day Subutex and Ativan taper and is tolerating medication well with no s/e or a/r reported. Pt didn't receive any PRNS during the shift. Last COW: 4 and CIWA: 2 (1999). All safety measures in place; side rails up x 2, bed locked and in low position, and call light within reach. Will endorse to the oncoming nurse.
--- NOTE | 2016-08-10 07:51 | NUR ---
Start of shift note; Received report from night nurse. Patient is currently resting with eyes closed, respirations even and unlabored. Patient is a 25 year old male admitted on 08/02/16 for Benzo/ ETOH/ Opiate dependence. Patient to be evaluated today by MD. Patient reported history of seizure d/t ETOH withdrawal 10 months ago. Patient also had right clavicle surgery 8 years ago. Patient is on a full code status, NKA, regular diet. Patient's last COWS score is 4 and last CIWA of 2 at 0400. Patient slept for 9 hours. Patient is on fall and seizure precaution. Will continue to monitor patient .
[2016-08-10 08:00] VITALS: BP 115/62
[2016-08-10] MEDS: CLONIDINE HCL 0.1 MG TABLET PO SCH ×4 (09:00→21:09)
[2016-08-10] MEDS: DICYCLOMINE HCL 20 MG TABLET PO SCH ×4 (09:13→21:07)
[2016-08-10] MEDS: BACLOFEN 20 MG TABLET PO SCH ×4 (09:14→21:08)
[2016-08-10] MEDS: LORAZEPAM 1 MG TABLET PO SCH (09:14)
[2016-08-10] MEDS: MULTIVITAMINS,THERAPEUTIC TABLET PO SCH (09:14)
[2016-08-10] MEDS: FOLIC ACID 1 MG TABLET PO SCH (09:14)
[2016-08-10] MEDS: BUPRENORPHINE HCL 2 MG TAB.SUBL SL SCH (09:14)
[2016-08-10] MEDS: GABAPENTIN 400 MG CAPSULE PO SCH ×4 (09:14→21:07)
[2016-08-10] MEDS: THIAMINE HCL 100 MG TABLET PO SCH (09:15)
[2016-08-10 12:00] VITALS: BP 115/60
[2016-08-10 16:00] VITALS: BP 123/74
[2016-08-10 17:31] LABS: *AMPHETAMINE, URINE NEGATIVE (NEGATIVE); *BARBITURATE, URINE NEGATIVE (NEGATIVE); *CANNABINOID, URINE POSITIVE (NEGATIVE); *COCCAINE, URINE NEGATIVE (NEGATIVE); *OPIATE, URINE NEGATIVE (NEGATIVE); *PHENCYCLIDINE SCREEN,URINE NEGATIVE (NEGATIVE)
--- NOTE | 2016-08-10 18:13 | NUR ---
End of shift note; Patient is AOX4. Patient is currently resting with eyes closed, respirations even and unlabored. Patient is a 25 year old male admitted on 08/02/16 for Benzo/ ETOH/ Opiate dependence. Patient reported history of seizure d/t ETOH withdrawal 10 months ago. Patient also had right clavicle surgery 8 years ago. Patient is on a full code status, NKA, regular diet. Patient remained compliant with treatment plan. Medications were effective in reducing withdrawal symptoms. Patient is medically cleared for discharge tomorrow. Safety measures secured. Met all needs.
--- NOTE | 2016-08-10 19:51 | NUR ---
START OF SHIFT NOTE Pt is a 26 y/o male admitted for Xanax, ETOH, Heroin, Crack, Cocaine, and Marijuana dependence and use. Pt has NKA but reported a PMH of seizure r/t ETOH w/d (10 months ago) and a right clavicle surgery 8 years ago. Per day shift nurse pt completed his taper and is scheduled to discharge tomorrow. Pt didn't receive any PRNS during the day shift. Last COW: 3 and CIWA: 2 (1600). At this time pt is participating in a meeting. Pt denies any pain/discomfort. Pt was encouraged to notify staff of any changes in condition or of any concerns. Pt verbalized an understanding. All safety measures in place; side rails up x 2, bed locked and in low position, and call light within reach. Will continue to monitor.
[2016-08-10 20:00] VITALS: BP 110/66
[2016-08-10] MEDS ORDERED: IBUP-1955 PO (20:10)
[2016-08-10] MEDS ORDERED: BACL20TA PO (20:10)
[2016-08-10] MEDS ORDERED: GABA-536 PO (20:10)
[2016-08-10] MEDS ORDERED: HYDR-3895 PO (20:10)
[2016-08-10] MEDS ORDERED: DICY20TA28 PO (20:10)
[2016-08-10] MEDS ORDERED: CLON0.1T14 PO (20:10)
[2016-08-10] MEDS ORDERED: DIPH50CA37 PO (20:10)
[2016-08-10] MEDS: IBUPROFEN 600 MG TABLET PO PRN (21:10)
--- NOTE | 2016-08-10 21:10 | NUR ---
VISTARIL AND IBUPROFEN PRN ADMINISTRATION Pt stated " I just feel and anxious and my bones hurt. Can I have something." Ibuprofen 600 mg PO PRN and Vistaril 25 mg PO PRN given. Pt was encouraged to notify staff of any changes in condition or concerns. Pt verbalized an understanding. All safety measures in place. Will monitor for effectiveness.
--- NOTE | 2016-08-10 22:10 | NUR ---
VISTARIL AND IBUPROFEN PRN REASSESSMENT Pt stated " I feel so much better." PRNS effective. Pt was encouraged to notify staff of any changes in condition or concerns. Pt verbalized an understanding. All safety measures in place. Will continue to monitor.
--- NOTE | 2016-08-11 | NUR ---
COW, CIWA, AND VITALS REFUSED Pt refused to be assessed and have vitals taken at this time. Pt was encouraged x 3 with risks and benefits explained, but the pt still declined. All safety measures in place. Will continue to monitor. Addendum: 08/11/16 at 0612 by BALBIR TRUJILLO LVN Amended: Links added.
--- NOTE | 2016-08-11 07:00 | NUR ---
Start of Shift Report from the night nurse: pt is a 25 y/o male here for Benzo r/t Xanax a few bars used once, Etoh r/t whiskey 750mL /d for a month, Opiates r/t heroin 1.5g/d, Cocaine 2g smoked/da d Marijuana 1/8/d; 5 day Ativan and 5 day Subutex tapers ordered started 08/03/16 and completed yesterday, so no PRN Narcotics ordered since pt is to be discharged tomorrow. Pt is a f/c, regular diet, NKA, fall and seizure precautions ordered. HHx: Seizure 10 months ago r/t Etoh w/d and right Clavicle surgery 8 years ago. PRN Motrin and Vistaril given last night. Last COWS 0 CIWA 0 since pt was asleep so COWS 7 CIWA 5 at 1999. Pt is awake and about to go out to smoke. Will cont. to monitor the pt.
--- NOTE | 2016-08-11 07:09 | NUR ---
END OF SHIFT NOTE Pt is a 26 y/o male admitted for Xanax, ETOH, Heroin, Crack, Cocaine, and Marijuana dependence and use. Pt has NKA but reported a PMH of seizure r/t ETOH w/d (10 months ago) and a right clavicle surgery 8 years ago. Pt completed taper and is scheduled to discharge today. Pt received Vistaril 25 mg PO PRN and Ibuprofen 600 mg PO PRN during the shift. Last COW: 7 and CIWA: 5 (1999). Pt slept for a total of 8 hours. All safety measures in place; side rails up x 2, bed locked and in low position, and call light within reach. Will endorse to the oncoming nurse.
[2016-08-11 08:00] VITALS: BP 115/72
[2016-08-11] MEDS: GABAPENTIN 400 MG CAPSULE PO SCH (08:36)
[2016-08-11] MEDS: THIAMINE HCL 100 MG TABLET PO SCH (08:37)
[2016-08-11] MEDS: FOLIC ACID 1 MG TABLET PO SCH (08:37)
[2016-08-11] MEDS: MULTIVITAMINS,THERAPEUTIC TABLET PO SCH (08:37)
[2016-08-11] MEDS: BACLOFEN 20 MG TABLET PO SCH (08:37)
[2016-08-11] MEDS: DICYCLOMINE HCL 20 MG TABLET PO SCH (08:37)
[2016-08-11 08:40] VITALS: BP 115/72
[2016-08-11] MEDS: CLONIDINE HCL 0.1 MG TABLET PO SCH (08:40)
--- NOTE | 2016-08-11 08:54 | NUR ---
Medication Non-Administration Pt refused Clonidine 0.1mg before getting d/c'd today. Will cont. to monitor the pt.
--- NOTE | 2016-08-11 10:25 | NUR ---
Discharge Pt is A&O x 4 ambulatory independently. Features symmetrical, PERRLA 3 mm, no KEYES, dizziness or N/V noted. Pt denies chest pain and no SOB or acute respiratory distress noted. V/S stable. Skin is intact. No w/d s/sx present. Pt voided. Pt is given belongings, written Rx, home medications and summary d/c packet. Pt is then chaperoned to the [employer] private ride and transported to [facility].
== END 2016-08-11 10:25 | disposition other institution (70) | DRG 895 ==
LOC: SRC 20:30
PROVIDERS: ADMIT Internal Medicine; ATTEND Internal Medicine
PROC: HZ2ZZZZ Detoxification Services for Substance Abuse Treatment (ICD-10-PCS; principal; 2016-08-02)
PROC: HZ31ZZZ Individual Counseling for Substance Abuse Treatment, Behavioral (ICD-10-PCS; 2016-08-04)
PROC: HZ41ZZZ Group Counseling for Substance Abuse Treatment, Behavioral (ICD-10-PCS; 2016-08-05)
DX: F10.230 Alcohol dependence with withdrawal, uncomplicated (principal); E87.3 Alkalosis; F11.23 Opioid dependence with withdrawal; F17.210 Nicotine dependence, cigarettes, uncomplicated; Y90.0 Blood alcohol level of less than 20 mg/100 ml; D64.9 Anemia, unspecified; E83.42 Hypomagnesemia; B19.20 Unspecified viral hepatitis C without hepatic coma; F90.9 Attention-deficit hyperactivity disorder, unspecified type; E86.0 Dehydration; F13.10 Sedative, hypnotic or anxiolytic abuse, uncomplicated; F14.10 Cocaine abuse, uncomplicated; F12.90 Cannabis use, unspecified, uncomplicated; G47.00 Insomnia, unspecified
CPT/HCPCS: 36415; 70030-TC; 80307; 80346; 80349; 80353; 83550; 83735; 84443; 85025; 86580; 86592; 86705; 86803; 87340; 87521; 87806; G0480; J1885; J3411; Q0162